=== PATIENT | female | born 2000 | race Caucasian/White ===

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

== ENCOUNTER 2021-02-14 16:11 | Emergency (ER) | payer OTHER, SELFPAY ==
[2021-02-14 16:20] VITALS: BP 118/79; PULSE 71; RESP 16; TEMP 36.9; O2SAT 99
--- NOTE | 2021-02-14 16:32 | ED.URI ---
HPI - URI/Sore Throat General Chief Complaint: Upper Respiratory Infection Stated Complaint: upper respiratory infection Time Seen by Provider: 02/14/21 16:32 Source: patient, RN notes reviewed and old records reviewed Mode of arrival: ambulatory Limitations: no limitations History of Present Illness HPI Narrative: 20 year old female who presents to [facility] care with complaints of sore throat and sinus pressure for the past 2-3 days, some dry cough noted also. Patient denies any fevers, chills or sweats. denies any ear pain. Patient states that her throat is really sore and it is difficult to swallow. Patient states that she has been gargling and drinking warm tea to soothe her throat. She also states that she has soreness and swelling to the glands in her neck with the left one larger, denies any excessive fatigue or stomach pain. MD elicited complaint: cough (dry cough), sore throat and other (sinus pressure) Onset (ago): day(s) (3) Consistency: progressively worsening Severity: moderate Pain scale (0-10): 7 Description of mucous: clear Able to tolerate fluids by mouth: Yes Exacerbating factors: swallowing and speaking Relieving factors: nothing Associated symptoms: rhinorrhea, nasal congestion, sore throat, cough and other (swollen lymph nodes) Treatments prior to arrival: other (gargled with salt water and hot tea) Related Data Allergies Allergy/AdvReac Type Severity Reaction Status Date / Time No Known Allergies Allergy Verified 04/01/20 07:51 Review of Systems Review of Systems: Narrative: CONSTITUTIONAL: Denies fever, chills, or sweats. EYES: Denies visual changes, redness, or discharge. ENT: Positive for rhinorrhea, congestion, positive for sore throat, no otalgia. CARDIOVASCULAR: Denies chest pain, palpitations, or edema. RESPIRATORY: Positive dry cough, denies dyspnea. GASTROINTESTINAL: Denies abdominal pain, nausea, vomiting, or diarrhea. GENITOURINARY: Denies dysuria or hematuria. SKIN: Denies rash or itching. MUSCULOSKELETAL: Denies back pain, joint pain, or myalgia. NEUROLOGIC: Denies headache, numbness, or weakness. PSYCHIATRIC: Denies anxiety or depression. All systems reviewed & are unremarkable except as noted in HPI and below PMFSH Past Medical History Medical History (Updated 02/14/21 @ 17:01 by Sola Vazquez NP) Colitis History of strep sore throat Surgical History Surgical History (Updated 02/14/21 @ 16:46 by Sola Vazquez NP) History of placement of ear tubes History of tonsillectomy and adenoidectomy Family History Family History (Updated 02/14/21 @ 17:07 by Sola Vazquez NP) Mother Pancreatitis Social History Social History (Updated 02/14/21 @ 17:07 by Sola Vazquez NP) Smoking status: Never smoker Alcohol intake: never Substance use type: marijuana Living arrangements: with family Gender identity (if verbalized by the patient): Female Comments At time of signature, agree with nursing past medical, surgical, social and family history. There is no relevant family history pertinent to the presenting complaint Exam Narrative: Exam Narrative: GENERAL: Well-appearing, well-nourished, and in no acute distress. HEAD: Normocephalic, atraumatic. EYES: PERRLA and EOMI. ENT: Nares red with clear rhinorrhea no epistaxis. Mucous membranes moist.TM's normal with no redness or drainage noted, throat red with white exudate in the back of throat, no lesions or tonsils present, painful swallowing stated. NECK: Supple.lymphadenopathy greater on left CHEST: Clear to auscultation. No respiratory distress. SAO2 99% on room air HEART: Regular rate and rhythm. No murmur heard. Normal peripheral pulses. ABDOMEN: Soft, nontender, nondistended, normal active bowel sounds. EXTREMITIES: Normal range of motion. No edema. SKIN: Warm, dry, no rash. NEURO: No focal deficits. Alert and oriented x3. Course Vital Signs Vital signs: Vital Signs Temperature 36.9 C 02/14/21 16:20
== END 2021-02-14 17:09 | disposition home or self-care (01) ==
PROVIDERS: Emergency Provider Registered Nurse
DX: J02.9 Acute pharyngitis, unspecified (principal)
CPT/HCPCS: 36416; 86308; 87081; 87880; 99213; G0463

== ENCOUNTER 2021-06-12 15:08 | Emergency (ER) | payer OTHER, SELFPAY ==
[2021-06-12 15:11] VITALS: BP 139/82; PULSE 113; RESP 16; TEMP 38.6; O2SAT 100
--- NOTE | 2021-06-12 16:28 | ED_ITS ---
HPI - URI/Sore Throat General Chief Complaint: Upper Respiratory Infection Stated Complaint: HOT/LEGS COLD/SORE THROAT/HEADACHE/WEAKNESS Source: RN notes reviewed and old records reviewed Limitations: other (Patient eloped) History of Present Illness HPI Narrative: The patient, a nondrinker/smoker [pot] who has had at least biannual visits, presents with chills . Patient has a shorter 1d history of sore throat , chills, myalgias with headache . Vitals remarkable for tachycardia, temperature 101.4. Remainder of history is unobtainable due to patient eloped, less than half hour in department Related Data Allergies Allergy/AdvReac Type Severity Reaction Status Date / Time No Known Allergies Allergy Verified 04/01/20 07:51 Review of Systems Review of Systems: ROS unobtainable: Yes unobtainable due to mental status (eloped) [facility] Past Medical History Medical History (Updated 06/12/21 @ 18:32 by Desmond Mace MD) Colitis History of strep sore throat Surgical History Surgical History (Updated 02/14/21 @ 16:46 by Sola Vazquez NP) History of placement of ear tubes History of tonsillectomy and adenoidectomy Family History Family History (Updated 02/14/21 @ 17:07 by Sola Vazquez NP) Mother Pancreatitis Social History Social History (Updated 02/14/21 @ 17:07 by Sola Vazquez NP) Smoking status: Never smoker Alcohol intake: never Substance use type: marijuana Gender identity (if verbalized by the patient): Female Comments Unobtainable as patient eloped Exam Const: General: alert Orientation/consciousness: patient oriented x3 Other: Exam unobtainable due to patient eloped Course Vital Signs Vital signs: Vital Signs Temperature 101.4 F H 06/12/21 15:11 Pulse Rate 113 H 06/12/21 15:11 Respiratory Rate 16 06/12/21 15:11 Blood Pressure 139/82 06/12/21 15:11 Pulse Oximetry 100 06/12/21 15:11 Temperature 101.4 F H 06/12/21 15:11 Pulse Rate 113 H 06/12/21 15:11 Respiratory Rate 16 06/12/21 15:11 Blood Pressure 139/82 06/12/21 15:11 Pulse Oximetry 100 06/12/21 15:11 Discharge Plan Discharge Clinical Impression: Eloped from emergency department, History of fever Patient Disposition: Elopement After Seen by Prov Condition: Guarded Prognosis Follow-up/Referrals: PHYSICIAN,CHECK INSPECTOR [Primary Care Provider] -
== END 2021-06-12 15:15 | disposition left against medical advice (07) ==
PROVIDERS: Emergency Provider Emergency Medicine
DX: R68.83 Chills (without fever) (principal); J02.9 Acute pharyngitis, unspecified; R51.9 Headache, unspecified; R53.1 Weakness
CPT/HCPCS: 99211; G0463